=== PATIENT | male | born 1970 | race American Indian/Alaskan Native ===

== ENCOUNTER 2019-03-13 12:16 | Emergency (ER) | payer SELFPAY ==
--- NOTE | 2019-03-13 12:45 | Event Note ---
ED Screening Note Date of service: 03/13/19 Time: 12:40 ED Screening Note: 48 yo male presents with elevated BP cc of nur, blurry vision and dizziness out of BP meds x 1 months LIsinopril /HCTZ 10-25 mg Denies CP This initial assessment/diagnostic orders/clinical plan/treatment(s) is/are subject to change based on patients health status, clinical progression and re- assessment by fellow clinical providers in the ED. Further treatment and workup at subsequent clinical providers discretion. Patient/guardian urged not to elope from the ED as their condition may be serious if not clinically assessed and managed. Initial orders include: labs clonidine 0.2mg Pain control ACC eval
[2019-03-13 14:47] LABS: Basophils # (Auto) 0.2 K/mm3 (0.0-0.1); Basophils % (Auto) 1.7 % (0.0-1.8); Eosinophils # (Auto) 0.1 K/mm3 (0.0-0.4); Eosinophils % (Auto) 0.8 % (0.0-4.3); Hematocrit 41.8 % (35.5-45.6); Hemoglobin 13.5 gm/dl (11.8-15.2); Lymphocytes # (Auto) 3.6 K/mm3 (1.2-5.4); Lymphocytes % (Auto) 40.7 % (13.4-35.0); Mean Corpuscular HGB Conc 32 % (32-34); Mean Corpuscular Volume 74 fl (84-94); Monocytes # (Auto) 0.6 K/mm3 (0.0-0.8); Platelet Count 214 K/mm3 (140-440); Red Blood Count 5.65 M/mm3 (3.65-5.03); Red Cell Distribution Width 16.8 % (13.2-15.2)
[2019-03-13 15:17] LABS: Alanine Aminotransferase 31 units/L (7-56); Albumin 4.6 g/dL (3.9-5); BUN/Creatinine Ratio 13; Blood Urea Nitrogen 12 mg/dL (9-20); Calcium 9.8 mg/dL (8.4-10.2); Hemolysis Index 9
[2019-03-13] MEDS ORDERED: hydroCHLOROthiazide 12.5 MG CAP PO ONE (15:42)
[2019-03-13] MEDS ORDERED: LISINOPRIL 10 MG TAB PO ONE (15:42)
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
[2019-03-13 16:07] VITALS: BP 143/97
== END 2019-03-13 16:10 | disposition home or self-care (01) ==
LOC: ED 12:16
DX: I10 Essential (primary) hypertension (principal); Z76.0 Encounter for issue of repeat prescription
CPT/HCPCS: 36415; 80053; 85025